=== PATIENT | female | born 1945 | race Caucasian/White ===

== ENCOUNTER → 2020-11-20 | Outpatient (CLI) | payer MEDICARE ==
[~2020-11-20] MED LIST: AMITRIPTYLINE H10 M1 PO; ARTHRITIS MED; CALCIUM; CALCIUM 500+D1 EAC3 PO; CENTRUM SILVER1 EAC3 PO; CHOLESTEROL MED; FISHOIL; GAVISCON TABLE1 EACH PO; GLUCOSAMINE1000 MG PO; HTN MED; HYDROCHLOROTHIA25 M1 PO; LEVO-T50 MCG PO; NORCO 5-325 TA1 EACH PO; OMEPRAZOLE 20 M20 MG PO; OSTEO BI-FLEX1 EAC1; OXYBUTYNIN 5 MG5 M2 PO; PROTONIX40 M4 PO; SEIZURE MED; SIMVASTATIN20 MG PO; SLOW RELEASE I140 MG PO; TOPAMAX50 MG PO; TRAMADOL 50 MG50 MG PO; ULTRAM 50MG TAB50 MG PO; ZESTRIL10 MG PO; ZESTRIL40 MG PO; ZOFRAN ODT4 MG PO; el; iron
== END ==
LOC: M.PC 09:54
PROVIDERS: ATTEND Physical Medicine & Rehabilitation
DX: M47.26 Other spondylosis with radiculopathy, lumbar region (principal); M51.16 Intervertebral disc disorders with radiculopathy, lumbar region; M41.86 Other forms of scoliosis, lumbar region; M43.8X6 Other specified deforming dorsopathies, lumbar region; M25.552 Pain in left hip

== ENCOUNTER → 2020-12-04 | Outpatient (CLI) | payer MEDICARE | LOC: M.MRI 11-25 08:30 | PROVIDERS: ATTEND Physical Medicine & Rehabilitation | DX: M47.26 Other spondylosis with radiculopathy, lumbar region (principal); M51.16 Intervertebral disc disorders with radiculopathy, lumbar region; M43.16 Spondylolisthesis, lumbar region; M48.061 Spinal stenosis, lumbar region without neurogenic claudication; M48.56XA Collapsed vertebra, not elsewhere classified, lumbar region, initial encounter for fracture ==

== ENCOUNTER → 2021-04-07 | Outpatient (CLI) | payer MEDICARE | END | disposition home or self-care (01) | LOC: M.PC 08:40 | PROVIDERS: ATTEND Physical Medicine & Rehabilitation | DX: M54.59 Other low back pain (principal); M51.16 Intervertebral disc disorders with radiculopathy, lumbar region; M47.26 Other spondylosis with radiculopathy, lumbar region; M48.061 Spinal stenosis, lumbar region without neurogenic claudication; M41.86 Other forms of scoliosis, lumbar region; M53.3 Sacrococcygeal disorders, not elsewhere classified; Z98.890 Other specified postprocedural states; Z79.899 Other long term (current) drug therapy; Z88.0 Allergy status to penicillin ==

== ENCOUNTER → 2021-04-21 | Outpatient (CLI) | payer MEDICARE ==
[~2021-04-21] MED LIST changes: +HYDROCODON-ACE1 EAC7 PO; +ZANAFLEX4 M2 PO
== END ==
LOC: M.PC 08:22
PROVIDERS: ATTEND Physical Medicine & Rehabilitation
DX: M47.26 Other spondylosis with radiculopathy, lumbar region (principal); M51.16 Intervertebral disc disorders with radiculopathy, lumbar region; M48.062 Spinal stenosis, lumbar region with neurogenic claudication; M41.86 Other forms of scoliosis, lumbar region; M47.27 Other spondylosis with radiculopathy, lumbosacral region; M48.07 Spinal stenosis, lumbosacral region; R00.1 Bradycardia, unspecified; M12.88 Other specific arthropathies, not elsewhere classified, other specified site

== ENCOUNTER → 2021-05-14 | Outpatient (CLI) | payer MEDICARE | END | disposition home or self-care (01) | LOC: M.PC 05-12 10:20 | PROVIDERS: ATTEND Physical Medicine & Rehabilitation | DX: M54.59 Other low back pain (principal); M54.16 Radiculopathy, lumbar region; M51.36 Other intervertebral disc degeneration, lumbar region; M48.061 Spinal stenosis, lumbar region without neurogenic claudication; M47.816 Spondylosis without myelopathy or radiculopathy, lumbar region; M46.98 Unspecified inflammatory spondylopathy, sacral and sacrococcygeal region; Z98.890 Other specified postprocedural states; Z79.899 Other long term (current) drug therapy; Z88.0 Allergy status to penicillin ==